=== PATIENT | female | born 1960 | race Caucasian/White ===

== ENCOUNTER → 2017-01-26 | Outpatient (CLI) | payer BC, OTHER ==
[~2017-01-26] MED LIST: ACET-1256 PO; ASPI325T45 PO; CALCTAB5 PO; GABA1CAP5 PO; MULT-506 PO; NAPR1TAB9 PO; SUMA50TA15 PO
--- NOTE | 2017-01-26 17:03 | MAMMOGRAPHY REPORT ---
BILATERAL DIGITAL SCREENING MAMMOGRAM TOMOSYNTHESIS WITH CAD: 01/26/2017 CLINICAL HISTORY: Routine screening. Patient has no complaints. TECHNIQUE: Breast tomosynthesis in addition to standard 2D mammography was performed. Current study was also evaluated with a Computer Aided Detection (CAD) system. COMPARISON: Comparison is made to exams dated: 01/14/2016 mammogram, 01/13/2015 mammogram, 01/09/2014 mammogram, and 01/03/2013 mammogram - [facility]. BREAST COMPOSITION: The tissue of both breasts is heterogeneously dense, which may obscure small ma sses. FINDINGS: There are scattered stable microcalcifications in the breasts. No new suspicious mass, ar chitectural distortion or cluster of microcalcifications is seen. IMPRESSION: ACR BI-RADS CATEGORY 1: NEGATIVE There is no mammographic evidence of malignancy. A 1 year screening mammogram is recommended. The p atient will receive written notification of the results. Approximately 10% of breast cancers are not detected with mammography. A negative mammographic repor t should not delay biopsy if a clinically suggestive mass is present. Jocelynn Still M.D. ay/:01/26/2017 16:38:43 Meeting Facilitator: Nelly DELGADO(R)(M), [facility] letter sent: Normal 1/2 BI-RADS Code: ACR BI-RADS Category 1: Negative
== END | disposition home or self-care (01) ==
LOC: C.MAMM 09:48
PROVIDERS: ATTEND Family Medicine
DX: Z12.31 Encounter for screening mammogram for malignant neoplasm of breast (principal)

== ENCOUNTER → 2017-07-01 | Outpatient (CLI) | payer OTHER ==
--- NOTE | 2017-07-01 14:08 | DIAGNOSTIC IMAGING REPORT ---
RIGHT WRIST MIN 3 VIEWS ROUTINE CLINICAL HISTORY: 56 years-old Female presenting with right hand and wrist pain. TECHNIQUE: Frontal, bilateral oblique, and lateral views of the right wrist were obtained. COMPARISON: 02/18/2016. FINDINGS: Previously noted osseous irregularity on the dorsum of the carpus indicating triquetral fracture is not apparent on the current exam, possibly indicating interval healing and acute fracture. Mild osteopenia is is suggested at the wrist. Radiocarpal, intercarpal, and carpometacarpal articulations intact. No evidence of erosions or loss of joint space. No acute fracture or malalignment. IMPRESSION: No significant abnormality of the right wrist. Electronically signed by: Hari Jesus M.D. 07/01/2017 2:07 PM Dictated Date/Time: 07/01/2017 2:04 PM
--- NOTE | 2017-07-01 14:09 | DIAGNOSTIC IMAGING REPORT ---
RIGHT HAND MIN 3 VIEWS ROUTINE CLINICAL HISTORY: R HAND PAIN Right pain COMPARISON: None. DISCUSSION: The bones and joint spaces appear intact. There is no evidence of fracture, dislocation or bony disease. There is no evidence for soft tissue swelling. IMPRESSION: Negative study. The above report was generated using voice recognition software. It may contain grammatical, syntax or spelling errors. Electronically signed by: Dariusz White M.D. 07/01/2017 2:08 PM Dictated Date/Time: 07/01/2017 2:05 PM
== END | disposition home or self-care (01) ==
LOC: C.RAD1850 13:49
PROVIDERS: ATTEND Nurse Practitioner Adult Health
DX: M25.531 Pain in right wrist (principal); W19.XXXA Unspecified fall, initial encounter

== ENCOUNTER → 2018-01-31 | Outpatient (CLI) | payer OTHER, BC ==
[~2018-01-31] MED LIST changes: +GABA-1220 PO; -GABA1CAP5 PO
--- NOTE | 2018-02-02 08:03 | MAMMOGRAPHY REPORT ---
BILATERAL DIGITAL SCREENING MAMMOGRAM TOMOSYNTHESIS WITH CAD: 01/31/2018 CLINICAL HISTORY: Routine screening. Patient has no complaints. TECHNIQUE: Breast tomosynthesis in addition to standard 2D mammography was performed. Current study was also evaluated with a Computer Aided Detection (CAD) system. COMPARISON: Comparison is made to exams dated: 01/26/2017 mammogram, 01/14/2016 mammogram, 01/13/2015 ma mmogram, 01/09/2014 mammogram, 01/03/2013 mammogram, and 12/29/2011 mammogram - [facility] er. BREAST COMPOSITION: The tissue of both breasts is heterogeneously dense, which may obscure small mas ses. FINDINGS: The parenchymal pattern is unchanged. No developing mass, architectural distortion or clus ter of suspicious microcalcifications is seen in either breast. IMPRESSION: ACR BI-RADS CATEGORY 2: BENIGN There is no mammographic evidence of malignancy. A 1 year screening mammogram is recommended. The pa tient will receive written notification of the results. Approximately 10% of breast cancers are not detected with mammography. A negative mammographic report should not delay biopsy if a clinically suggestive mass is present. Jocelynn Still M.D. ay/:01/31/2018 16:46:57 Contact And Service Clerks Supervisor: Eloise DELGADO(Maryann)(Jacek), [facility] letter sent: Normal 1/2 BI-RADS Code: ACR BI-RADS Category 2: Benign
== END | disposition home or self-care (01) ==
LOC: C.MAMM 16:25
PROVIDERS: ATTEND Family Medicine
DX: Z12.31 Encounter for screening mammogram for malignant neoplasm of breast (principal)